=== PATIENT | male | born 1970 | race Caucasian/White ===

== ENCOUNTER 2017-01-01 17:21 | Emergency (ER) | payer BC ==
[2017-01-01] MEDS ORDERED: Lidocaine 1% 20 ML MDV INJECT ONE (17:29)
[2017-01-01] MEDS ORDERED: Bacitracin Oint 1 GM U/D Packet TOP ONE (17:41)
--- NOTE | 2017-01-01 18:02 | EDM.PDOC ---
ED HPI GENERAL MEDICAL PROBLEM - General Chief Complaint: Laceration Stated Complaint: PT CUT LT THUMB Time Seen by Provider: 01/01/17 17:44 - History of Present Illness INITIAL COMMENTS - FREE TEXT/NARRATIVE: HISTORY AND PHYSICAL: History of present illness: 46-year-old male presents to the emergency room today with complaints of a laceration to his left thumb. States he was using a dull paperboard box maker and it slipped out of his hand resulting in a partial skin avulsion of the left thumb. Reports that his tetanus is up-to-date. Denies any numbness or tingling. Patient reports he is currently on antibiotics for a dental abscess. Review of systems: As per history of present illness and below otherwise all systems reviewed and negative. Past medical history: As per history of present illness and as reviewed below otherwise noncontributory. Surgical history: As per history of present illness and as reviewed below otherwise noncontributory. Social history: No reported history of drug or alcohol abuse. Family history: As per history of present illness and as reviewed below otherwise noncontributory. Physical exam: HEENT: Atraumatic, normocephalic, pupils reactive, negative for conjunctival pallor or scleral icterus, mucous membranes moist, throat clear, neck supple, nontender, trachea midline. Lungs: Clear to auscultation, breath sounds equal bilaterally, chest nontender. Heart: S1S2, regular, negative for clicks, rubs, or JVD. Abdomen: Soft, nondistended, nontender. Negative for masses or hepatosplenomegaly. Negative for costovertebral tenderness. Pelvis: Stable nontender. Genitourinary: Deferred. Rectal: Deferred. Extremities: Atraumatic, negative for cords or calf pain. Neurovascular unremarkable. Neuro: Awake, alert, oriented. Cranial nerves II through XII unremarkable. Cerebellum unremarkable. Motor and sensory unremarkable throughout. Exam nonfocal. Patient is currently on antibiotics for a dental abscess. Thorough education was done on monitoring for signs of infection. Patient voices understanding and states he will monitor and follow up if he does notice any signs of infection as discussed. Diagnostics: X-ray Therapeutics: Lidocaine, suture, dressing #8 interrupted stitches with 4-0 nylon and sterile technique to the left thumb. Impression: Laceration Definitive disposition and diagnosis as appropriate pending reevaluation and review of above. Onset: Today Onset Date: 01/01/17 Duration: Minutes: Location: Reports: Upper Extremity, Left Quality: Reports: Burning Severity: Mild Improves with: Reports: None Worsens with: Reports: None left thumb Pain Score (Numeric/FACES): 7 - Related Data Allergies Allergy/AdvReac Type Severity Reaction Status Date / Time No Known Allergies Allergy Verified 01/01/17 17:30 Home Meds: Home Meds Albuterol [Proventil Neb Soln] 2.5 mg IH ASDIRECTED PRN 04/13/15 [History] metFORMIN HCl [Metformin HCl] 1,000 mg PO BID 01/01/17 [History] Past Medical History - Past Health History Medical/Surgical History: Denies Medical/Surgical History HEENT History: Reports: None Cardiovascular History: Reports: CAD, Hypertension Other Cardiovascular History: recent cardiac cath, is in need of CABG/MVR Respiratory History: Reports: Asthma Other Gastrointestinal History: Chrons Disease Genitourinary History: Reports: None Musculoskeletal History: Reports: None Neurological History: Reports: None Psychiatric History: Reports: None Endocrine/Metabolic History: Reports: Diabetes, Type II Immunologic History: Reports: None Oncologic (Cancer) History: Reports: None Dermatologic History: Reports: None - Infectious Disease History Infectious Disease History: Reports: Chicken Pox - Past Surgical History Head Surgeries/Procedures: Reports: None HEENT Surgical History: Reports: None Other Cardiovascular Surgeries/Procedures: open heart surgery 7 wks ago, triple bypass, aortic bvalve replacement, Respiratory Surgical History: Reports: None Male Surgical History: Reports: None Neurological Surgical History: Reports: None Musculoskeletal Surgical History: Reports: None Oncologic Surgical History: Reports: None Social & Family History - Family History Family Medical History: Noncontributory - Tobacco Use Smoking Status *Q: Never Smoker Years of Tobacco use: 30 Packs/Tins Daily: 0.8 Used Tobacco, but Quit: Yes Month Tobacco Last Used: 10/2014 Second Hand Smoke Exposure: No - Alcohol Use Days Per Week of Alcohol Use: 0 - Recreational Drug Use Recreational Drug Use: No ED ROS GENERAL - Review of Systems Review Of Systems: See Below ED EXAM, SKIN/RASH Exam: See Below (See dictation) ED SKIN PROCEDURES - Laceration/Wound Repair Left Thumb Lac/Wound length In cm: 2 Appearance: Clean Distal NVT: Neuro & Vascular Intact, No Tendon Injury Anesthetic Type: Digital Local Anesthesia - Lidocaine (Xylocaine): 1% Plain Local Anesthetic Volume: Other (6) Skin Prep: Chlorhexidine (Hibiciens), Saline, Sterile Drape Exploration/Debridement/Repair: Wound Explored, In a Bloodless Field, No Foreign Material Found Closed with: Sutures Suture Size: 4-0 # of Sutures: 8 Suture Type: Nylon, Simple Course - Vital Signs Last Recorded V/S: Last Vital Signs Temp 36.6 C 01/01/17 17:21 Pulse Resp 18 01/01/17 17:21 BP 165/82 H 01/01/17 17:21 Pulse Ox - Orders/Labs/Meds Orders: Active Orders 24 hr Category Date Time Status Fingers Thumb Lt FA [CR] Stat Exams 01/01/17 17:40 Taken Meds: Medications Discontinued Medications Generic Name Dose Route Start Last Admin Trade Name Deepa PRN Reason Stop Dose Admin Bacitracin 1 dose 01/01/17 17:41 01/01/17 17:56 Bacitracin Oint 1 Gm TOP 01/01/17 17:42 1 dose ONETIME ONE Administration Lidocaine HCl 20 ml 01/01/17 17:29 01/01/17 17:54 Xylocaine 1% INJECT 01/01/17 17:30 20 ml ONETIME ONE Administration Departure - Departure Time of Disposition: 18:43 Disposition: Home, Self-Care 01 Condition: Good Clinical Impression: Laceration - Discharge Information Instructions: Laceration Care, Adult, [id number] Referrals: PCP,None [Primary Care Provider] - Forms: ED Department Discharge Additional Instructions: The following information is given to patients seen in the emergency department who are being discharged to home. This information is to outline your options for follow-up care. We provide all patients seen in our emergency department with a follow-up referral. The need for follow-up, as well as the timing and circumstances, are variable depending upon the specifics of your emergency department visit. If you don't have a primary care physician on staff, we will provide you with a referral. We always advise you to contact your personal physician following an emergency department visit to inform them of the circumstance of the visit and for follow-up with them and/or the need for any referrals to a consulting specialist. The emergency department will also refer you to a specialist when appropriate. This referral assures that you have the opportunity for followup care with a specialist. All of these measure are taken in an effort to provide you with optimal care, which includes your followup. Under all circumstances we always encourage you to contact your private physician who remains a resource for coordinating your care. When calling for followup care, please make the office aware that this follow-up is from your recent emergency room visit. If for any reason you are refused follow-up, please contact the [facility] emergency department at and asked to speak to the emergency department charge nurse. [facility] [address] [place] [id number] 1. Please keep the wound clean and dry. May wear cage splints overtop of laceration to protect it while using the affected finger. Monitor for signs of infection as discussed. Sutures should be removed 10-14 days. 2. Follow-up with your primary care provider in the next 1-2 days. Return to the ED as needed as discussed - My Orders Last 24 Hours: My Active Orders 01/01/17 17:40 Fingers Thumb Lt FA [CR] Stat - Assessment/Plan Last 24 Hours: My Active Orders 01/01/17 17:40 Fingers Thumb Lt FA [CR] Stat
[2017-01-01 18:57] VITALS: BP 136/82
--- NOTE | 2017-01-05 11:14 | CR ---
EXAM DATE: 01/01/17 PATIENT'S AGE: 46 Patient: JAZZ NGUYEN Facility: [place], [place] Site . Site : 1970 Study: XRay Extremity Left THUMB [id number] 6:04:21 PM Ordering Physician: Doctor Chavarria Final Report: INDICATION: LACERATION TECHNIQUE: Three views of the left thumb COMPARISON: None FINDINGS: Bones: No fractures or bone lesions. Joint spaces: Degenerative changes. 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 No radiopaque foreign body. 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 No radiopaque foreign body. No acute bony abnormality Dictated by Shalom Elizalde MD @ 01/01/2017 6:28:28 PM Dictated by: Shalom Elizalde MD @ 01/01/2017 18:28:33 (Electronic Signature) Report Signed by Proxy. MTDDez
== END 2017-01-01 18:55 | disposition home or self-care (01) ==
LOC: MW.ED 17:21
DX: S61.012A Laceration without foreign body of left thumb without damage to nail, initial encounter (principal); I25.10 Atherosclerotic heart disease of native coronary artery without angina pectoris; I10 Essential (primary) hypertension; E11.9 Type 2 diabetes mellitus without complications; W27.8XXA Contact with other nonpowered hand tool, initial encounter
CPT/HCPCS: 12001; 73140-26-FA; 73140-FA; 99283

== ENCOUNTER 2017-02-09 16:11 | Emergency (ER) | payer BC ==
[2017-02-09] MEDS ORDERED: Aspirin 81 MG Tab.Chew PO ONE (16:26)
[2017-02-09] MEDS ORDERED: Sodium Chloride 0.9% 2.5 ML Syringe FLUSH PRN (16:26)
[2017-02-09] MEDS ORDERED: Sodium Chloride 0.9% 10 ML Syringe FLUSH PRN (16:26)
--- NOTE | 2017-02-09 16:30 | EDM.PDOC ---
ED HPI GENERAL MEDICAL PROBLEM - General Chief Complaint: Chest Pain Stated Complaint: CHEST PAIN Time Seen by Provider: 02/09/17 16:17 - History of Present Illness INITIAL COMMENTS - FREE TEXT/NARRATIVE: HISTORY AND PHYSICAL: History of present illness: The patient is a 46-year-old male with an extensive cardiac history including aortic valve replacement 2 for which he currently has a natural valve, open heart surgery, and recent cardiac stent placement at [facility] just about 3 weeks ago who presents with complaints of left-sided chest pain that radiates to his jaw. The patient says he has nitroglycerin but he hasn't had chest pain since his stent and he was doing his normal work today when he suddenly became very diaphoretic. He noticed the discomfort but it was more a matter of the diaphoresis. He wasn't lightheaded or dizzy knee did not pass out and had no abdominal pain or vomiting. He says the discomfort radiates to his jaw only and he tried 3 nitroglycerin every 5 minutes and it did not make the pain better. He presents today with complaints of same. He currently rates his pain as a 7/ 10. Patient is on Plavix as well as one aspirin a day and takes Lasix as well as metoprolol and cannot recall the rest of his medications. He says that with his last admission at [facility] he had normal EKG and labs but still needed a stent. He says that prior to that admission he was at the [facility] 2 prior times and discharge home. He denies any recent upper respiratory tract symptoms coughing shortness of breath abdominal pain vomiting or diarrhea and has had no fevers or chills. He denies any trauma. Review of systems: As per history of present illness and below otherwise all systems reviewed and negative. Past medical history: As per history of present illness and as reviewed below otherwise noncontributory. Surgical history: As per history of present illness and as reviewed below otherwise noncontributory. Social history: No reported history of drug or alcohol abuse. Family history: As per history of present illness and as reviewed below otherwise noncontributory. Physical exam: General: Well-developed overweight man who is nontoxic and speaking clearly in the ED. Vital signs of been reviewed by me. HEENT: Atraumatic, normocephalic, negative for conjunctival pallor or scleral icterus, mucous membranes moist, throat clear, neck supple, nontender, trachea midline. Lungs: Clear to auscultation, breath sounds equal bilaterally, chest nontender. No worker breathing or sensory muscle use Heart: S1S2, regular, negative for clicks, rubs, or JVD. Abdomen: Soft, nondistended, nontender. Negative for masses or hepatosplenomegaly. Hypoactive bowel sounds Pelvis: Stable nontender. Genitourinary: Deferred. Rectal: Deferred. Extremities: Atraumatic, negative for cords or calf pain. Neurovascular unremarkable. No pedal edema or leg asymmetry Neuro: Awake, alert, oriented. Cranial nerves II through XII unremarkable. Cerebellum unremarkable. Motor and sensory unremarkable throughout. Exam nonfocal. Skin: No diaphoresis normal turgor no evidence of any overt rashes or lesions Diagnostics: EKG chest x-ray CBC CMP INR troponin Therapeutics: IV O2 monitor TKO IV fluids nitroglycerin sublingual nitroglycerin drip if indicated 3 baby aspirin as patient took one this morning Lovenox After my initial interview the patient is a 30 stated to me that he will not go to [facility] or he had a bad experience there with his first valve replacement and he wants to go back to [facility] if he is going to be transferred. 1700: After 3 sublingual nitros the patient says that the pain is not better. We will begin nitro drip. We will also perform a second EKG. Flight team is then placed on standby after my initial evaluation with the patient 1710: Case was discussed with the education consultant at [facility], Dr. Blackman, who wants heparin per protocol to be started and a nitro drip. He accepts the patient for direct transfer to the ICU. He is aware of all testing results. Patient is also aware of this transfer and the flight route. I will give him some of the pain as well as heparin bolus and heparin drip. Critical care time excluding procedures:31min Impression: Unstable angina with recent PTCA with stent Definitive disposition and diagnosis as appropriate pending reevaluation and review of above. 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 Left Chest/Shoulder/Jaw Pain Score (Numeric/FACES): 7 - Related Data Allergies Allergy/AdvReac Type Severity Reaction Status Date / Time No Known Allergies Allergy Verified 02/09/17 16:19 Home Meds: Home Meds Albuterol [Proventil Neb Soln] 2.5 mg IH ASDIRECTED PRN 04/13/15 [History] metFORMIN HCl [Metformin HCl] 1,000 mg PO BID 01/01/17 [History] Past Medical History - Past Health History Medical/Surgical History: Denies Medical/Surgical History HEENT History: Reports: None Cardiovascular History: Reports: CAD, Hypertension Other Cardiovascular History: recent cardiac cath, is in need of CABG/MVR Respiratory History: Reports: Asthma Other Gastrointestinal History: Chrons Disease Genitourinary History: Reports: None Musculoskeletal History: Reports: None Neurological History: Reports: None Psychiatric History: Reports: None Endocrine/Metabolic History: Reports: Diabetes, Type II Immunologic History: Reports: None Oncologic (Cancer) History: Reports: None Dermatologic History: Reports: None - Infectious Disease History Infectious Disease History: Reports: Chicken Pox - Past Surgical History Head Surgeries/Procedures: Reports: None HEENT Surgical History: Reports: None Other Cardiovascular Surgeries/Procedures: open heart surgery 7 wks ago, triple bypass, aortic bvalve replacement, Respiratory Surgical History: Reports: None Male Surgical History: Reports: None Neurological Surgical History: Reports: None Musculoskeletal Surgical History: Reports: None Oncologic Surgical History: Reports: None Social & Family History - Family History Family Medical History: Noncontributory - Tobacco Use Smoking Status *Q: Never Smoker Years of Tobacco use: 30 Packs/Tins Daily: 0.8 Used Tobacco, but Quit: Yes Month Tobacco Last Used: 10/2014 Second Hand Smoke Exposure: No - Alcohol Use Days Per Week of Alcohol Use: 0 - Recreational Drug Use Recreational Drug Use: No ED ROS GENERAL - Review of Systems Review Of Systems: ROS reveals no pertinent complaints other than HPI. ED EXAM, GENERAL - Physical Exam Exam: See Below (See dictation) Course - Vital Signs Last Recorded V/S: Last Vital Signs Temp 36.3 C 02/09/17 16:19 Pulse 64 02/09/17 16:33 Resp 18 02/09/17 16:33 BP 107/52 L 02/09/17 16:58 Pulse Ox 94 L 02/09/17 16:33 - Orders/Labs/Meds Orders: Active Orders 24 hr Category Date Time Status Cardiac Monitoring [RC] . DIRECTED Care 02/09/17 16:25 Active EKG 12 Lead [EKG Documentation Completion] [RC] STAT Care 02/09/17 16:27 Active EKG Documentation Completion [RC] STAT Care 02/09/17 16:25 Active Oxygen Therapy, ED [RC] ASDIRECTED Care 02/09/17 16:25 Active Pulse Oximetry [RC] ASDIRECTED Care 02/09/17 16:25 Active Chest 1V Frontal [CR] Stat Exams 02/09/17 16:26 Taken Heparin Sod,Pork In 0.45% Nacl [Heparin-1/2Ns 25,000 Med 02/09/17 17:15 Ordered Units/500] 25,000 unit in 500 ml IV TITRATE Nitroglycerin/D5W [Nitroglycerin 25 MG/D5W 250 ML] Med 02/09/17 17:15 Active 25 mg in 250 ml IV TITRATE Sodium Chloride 0.9% [Normal Saline] 1,000 ml Med 02/09/17 16:45 Active IV ASDIRECTED Sodium Chloride 0.9% [Saline Flush] Med 02/09/17 16:26 Active 10 ml FLUSH ASDIRECTED PRN Sodium Chloride 0.9% [Saline Flush] Med 02/09/17 16:26 Active 2.5 ml FLUSH ASDIRECTED PRN Saline Lock Insert [OM.PC] Stat Oth 02/09/17 16:25 Ordered Medication Orders Sodium Chloride (Normal Saline) 1,000 mls @ 50 mls/hr IV ASDIRECTED ROVERTO Last Admin: 02/09/17 16:47 Dose: 50 mls/hr Nitroglycerin/Dextrose (Nitroglycerin 25 Mg/D5w 250 Ml) 25 mg in 250 mls @ 3 mls/hr IV TITRATE ROVERTO PRN Reason: 5 MCG/MIN Last Admin: 02/09/17 17:20 Dose: 5 mcg/min, 3 mls/hr Heparin Sod,Pork In 0.45% Nacl (Heparin-1/2ns 25,000 Units/500) 25,000 unit in 500 mls @ 0 mls/hr IV TITRATE ROVERTO; 1,000 UNITS/KG/HR PRN Reason: Protocol Sodium Chloride (Saline Flush) 10 ml FLUSH ASDIRECTED PRN PRN Reason: Keep Vein Open Last Admin: 02/09/17 16:47 Dose: 10 ml Sodium Chloride (Saline Flush) 2.5 ml FLUSH ASDIRECTED PRN PRN Reason: Keep Vein Open Last Admin: 02/09/17 16:47 Dose: 2.5 ml Labs: Laboratory Tests 02/09/17 02/09/17 02/09/17 Range/Units 16:26 16:26 16:26 WBC 7.41 (4.0-11.0) K/uL RBC 4.98 (4.50-5.90) M/uL Hgb 13.4 (13.0-17.0) g/dL Hct 39.4 (38.0-50.0) % MCV 79.1 L (80.0-98.0) fL MCH 26.9 L (27.0-32.0) pg MCHC 34.0 (31.0-37.0) g/dL RDW Std Deviation 57.1 (28.0-62.0) fl RDW Coeff of Raine 20 H (11.0-15.0) % Plt Count 257 (150-400) K/uL MPV 9.90 (7.40-12.00) fL Neut % (Auto) 58.1 (48.0-80.0) % Lymph % (Auto) 32.7 (16.0-40.0) % Converse % (Auto) 7.6 (0.0-15.0) % Eos % (Auto) 1.3 (0.0-7.0) % Baso % (Auto) 0.3 (0.0-1.5) % Neut # (Auto) 4.3 (1.4-5.7) K/uL Lymph # (Auto) 2.4 (0.6-2.4) K/uL Converse # (Auto) 0.6 (0.0-0.8) K/uL Eos # (Auto) 0.1 (0.0-0.7) K/uL Baso # (Auto) 0.0 (0.0-0.1) K/uL Nucleated RBC % 0.0 /100WBC Nucleated RBCs # 0 K/uL INR 0.96 (0.86-1.11) Sodium 139 (136-146) mmol/L Potassium 3.6 (3.5-5.1) mmol/L Chloride 107 (98-110) mmol/L Carbon Dioxide 21 (21-31) mmol/L BUN 19 (6.0-23.0) mg/dL Creatinine 1.1 (0.6-1.5) mg/dL Est Cr Clr Drug Dosing 97.56 mL/min Estimated GFR (MDRD) > 60.0 ml/min Glucose 110 (60-110) mg/dL Calcium 9.2 (8.8-10.8) mg/dL Total Bilirubin 0.5 (0.1-1.5) mg/dL AST 19 (5-40) IU/L ALT 16 (8-54) IU/L Alkaline Phosphatase 96 (40-150) Troponin I (0.0-0.29) NG/ML Total Protein 7.3 (6.0-8.0) g/dL Albumin 3.9 (3.5-5.0) g/dL Globulin 3.4 (2.0-3.5) g/dL Albumin/Globulin Ratio 1.2 L (1.3-2.8) 02/09/17 Range/Units 16:26 WBC (4.0-11.0) K/uL RBC (4.50-5.90) M/uL Hgb (13.0-17.0) g/dL Hct (38.0-50.0) % MCV (80.0-98.0) fL MCH (27.0-32.0) pg MCHC (31.0-37.0) g/dL RDW Std Deviation (28.0-62.0) fl RDW Coeff of Raine (11.0-15.0) % Plt Count (150-400) K/uL MPV (7.40-12.00) fL Neut % (Auto) (48.0-80.0) % Lymph % (Auto) (16.0-40.0) % Converse % (Auto) (0.0-15.0) % Eos % (Auto) (0.0-7.0) % Baso % (Auto) (0.0-1.5) % Neut # (Auto) (1.4-5.7) K/uL Lymph # (Auto) (0.6-2.4) K/uL Converse # (Auto) (0.0-0.8) K/uL Eos # (Auto) (0.0-0.7) K/uL Baso # (Auto) (0.0-0.1) K/uL Nucleated RBC % /100WBC Nucleated RBCs # K/uL INR (0.86-1.11) Sodium (136-146) mmol/L Potassium (3.5-5.1) mmol/L Chloride (98-110) mmol/L Carbon Dioxide (21-31) mmol/L BUN (6.0-23.0) mg/dL Creatinine (0.6-1.5) mg/dL Est Cr Clr Drug Dosing mL/min Estimated GFR (MDRD) ml/min Glucose (60-110) mg/dL Calcium (8.8-10.8) mg/dL Total Bilirubin (0.1-1.5) mg/dL AST (5-40) IU/L ALT (8-54) IU/L Alkaline Phosphatase (40-150) Troponin I < 0.10 (0.0-0.29) NG/ML Total Protein (6.0-8.0) g/dL Albumin (3.5-5.0) g/dL Globulin (2.0-3.5) g/dL Albumin/Globulin Ratio (1.3-2.8) Meds: Medications Generic Name Dose Route Start Last Admin Trade Name Freq PRN Reason Stop Dose Admin Sodium Chloride 1,000 mls @ 50 mls/hr 02/09/17 16:45 02/09/17 16:47 Normal Saline IV 50 mls/hr ASDIRECTED ROVERTO Administration Nitroglycerin/Dextrose 25 mg in 250 mls @ 3 mls/hr 02/09/17 17:15 02/09/17 17 :20 Nitroglycerin 25 Mg/D5w 250 Ml IV 5 mcg/min TITRATE ROVERTO 3 mls/hr 5 MCG/MIN Administration Heparin Sod,Pork In 0.45% Nacl 25,000 unit in 500 mls @ 0 mls/hr 02/09/17 17: 15 Heparin-1/2ns 25,000 Units/500 IV TITRATE ROVERTO Protocol 1,000 UNITS/KG/HR Sodium Chloride 10 ml 02/09/17 16:26 02/09/17 16:47 Saline Flush FLUSH 10 ml ASDIRECTED PRN Administration Keep Vein Open Sodium Chloride 2.5 ml 02/09/17 16:26 02/09/17 16:47 Saline Flush FLUSH 2.5 ml ASDIRECTED PRN Administration Keep Vein Open Discontinued Medications Generic Name Dose Route Start Last Admin Trade Name Freq PRN Reason Stop Dose Admin Aspirin 243 mg 02/09/17 16:26 02/09/17 16:35 Aspirin PO 02/09/17 16:27 243 mg ONETIME ONE Administration Heparin Sodium (Porcine) 5,000 units 02/09/17 17:20 Heparin Sodium IVPUSH 02/09/17 17:21 ONETIME ONE Nitroglycerin 0.4 mg 02/09/17 16:30 02/09/17 16:58 Nitrostat SL 02/09/17 16:41 0.4 mg Q5M ROVERTO Administration Departure - Departure Time of Disposition: 17:24 Disposition: DC/Tfer to Acute Hospital 02 Condition: Good Clinical Impression: Unstable angina - Discharge Information Forms: ED Department Discharge - My Orders Last 24 Hours: My Active Orders 02/09/17 16:25 Cardiac Monitoring [RC] . DIRECTED EKG Documentation Completion [RC] STAT Oxygen Therapy, ED [RC] ASDIRECTED Pulse Oximetry [RC] ASDIRECTED Saline Lock Insert [OM.PC] Stat 02/09/17 16:26 Chest 1V Frontal [CR] Stat Sodium Chloride 0.9% [Saline Flush] 10 ml FLUSH ASDIRECTED PRN Sodium Chloride 0.9% [Saline Flush] 2.5 ml FLUSH ASDIRECTED PRN 02/09/17 16:27 EKG 12 Lead [EKG Documentation Completion] [RC] STAT 02/09/17 16:45 Sodium Chloride 0.9% [Normal Saline] 1,000 ml IV ASDIRECTED 02/09/17 17:15 Heparin Sod,Pork In 0.45% Nacl [Heparin-1/2Ns 25,000 Units/500] 25,000 unit in 500 ml IV TITRATE Nitroglycerin/D5W [Nitroglycerin 25 MG/D5W 250 ML] 25 mg in 250 ml IV TITRATE - Assessment/Plan Last 24 Hours: My Active Orders 02/09/17 16:25 Cardiac Monitoring [RC] . DIRECTED EKG Documentation Completion [RC] STAT Oxygen Therapy, ED [RC] ASDIRECTED Pulse Oximetry [RC] ASDIRECTED Saline Lock Insert [OM.PC] Stat 02/09/17 16:26 Chest 1V Frontal [CR] Stat Sodium Chloride 0.9% [Saline Flush] 10 ml FLUSH ASDIRECTED PRN Sodium Chloride 0.9% [Saline Flush] 2.5 ml FLUSH ASDIRECTED PRN 02/09/17 16:27 EKG 12 Lead [EKG Documentation Completion] [RC] STAT 02/09/17 16:45 Sodium Chloride 0.9% [Normal Saline] 1,000 ml IV ASDIRECTED 02/09/17 17:15 Heparin Sod,Pork In 0.45% Nacl [Heparin-1/2Ns 25,000 Units/500] 25,000 unit in 500 ml IV TITRATE Nitroglycerin/D5W [Nitroglycerin 25 MG/D5W 250 ML] 25 mg in 250 ml IV TITRATE
[2017-02-09] MEDS ORDERED: Sodium Chloride 0.9% 1,000 ML IV SCH (16:45)
[2017-02-09] MEDS: Nitroglycerin 0.4 MG Tab.SL SL SCH ×3 (16:46→16:58)
[2017-02-09 16:59] VITALS: BP 107/52
[2017-02-09 17:01] LABS: CHLORIDE,CL 107 mmol/L (98-110); SODIUM,NA 139 mmol/L (136-146)
[2017-02-09] MEDS ORDERED: Heparin Sod,Pork In 0.45% Nacl 25,000 UNIT/500 ML IV.SOLN IV SCH ×2 (17:15→17:45)
[2017-02-09] MEDS ORDERED: Nitroglycerin/D5W 25 MG/250 ML BOTTLE IV SCH (17:15)
[2017-02-09] MEDS ORDERED: Heparin Sodium 5,000 Units/ML Vial IVPUSH ONE (17:20)
[2017-02-09] MEDS ORDERED: fentaNYL 100 MCG/2 ML SDV IVPUSH PRN (17:24)
--- NOTE | 2017-02-10 10:22 | CR ---
EXAM DATE: 02/09/17 PATIENT'S AGE: 46 Patient: JAZZ NGUYEN Facility: [place], [place] Site Site : 1970 Study: XRay Chest [id number]/[id number]/2017 5:03:02 PM Ordering Physician: BINA Final Report: INDICATION: CHEST PAIN TECHNIQUE: Chest 1 view COMPARISON: April 13, 2015 FINDINGS: Cardiovascular and mediastinum: Stable cardiac silhouette. Stable sternotomy changes.. Mediastinum is within normal limits. Lungs and pleural space: No focal consolidation. No sign of pleural effusion. No pneumothorax. Bones and soft tissues: No significant findings. IMPRESSION: No acute cardiopulmonary disease. Dictated by Shalom Elizalde MD @ 02/09/2017 5:30:45 PM Dictated by: Shalom Elizalde MD @ 02/09/2017 17:30:52 (Electronic Signature) Report Signed by Proxy. [facility]
== END 2017-02-09 18:17 ==
LOC: MW.ED 16:11
DX: I20.0 Unstable angina (principal); I10 Essential (primary) hypertension; J45.909 Unspecified asthma, uncomplicated; E11.9 Type 2 diabetes mellitus without complications; Z95.1 Presence of aortocoronary bypass graft; Z95.2 Presence of prosthetic heart valve; Z87.891 Personal history of nicotine dependence; Z95.5 Presence of coronary angioplasty implant and graft; Z79.84 Long term (current) use of oral hypoglycemic drugs
CPT/HCPCS: 36415; 71010; 80053; 84484; 85025; 85610; 93005; 96361; 96365; 96368; 96375; 96376; 99285; A9270; J1644; J3010; J7040; 99291

== ENCOUNTER 2017-04-20 16:05 | Emergency (ER) | payer BC ==
[2017-04-20] MEDS ORDERED: Aspirin 81 MG Tab.Chew PO ONE (16:13)
[2017-04-20] MEDS ORDERED: Nitroglycerin 2% Oint 1 GM UD Packet TOP ONE (16:25)
[2017-04-20] MEDS ORDERED: Aspirin 81 MG Tab.Chew ONE (16:26)
[2017-04-20] MEDS ORDERED: Nitroglycerin 2% Oint 1 GM UD Packet ONE (16:26)
--- NOTE | 2017-04-20 17:41 | EDM.PDOC ---
ED HPI GENERAL MEDICAL PROBLEM - General Chief Complaint: Chest Pain Stated Complaint: CHEST PAIN Time Seen by Provider: 04/20/17 16:14 - History of Present Illness INITIAL COMMENTS - FREE TEXT/NARRATIVE: HISTORY AND PHYSICAL: History of present illness: Patient's 46-year-old white male with history of extensive coronary artery disease including cardiothoracic surgery 3 including as recently as approximately 8 months prior at [place] where he had a Ross procedure he presents today with chest pain that has been relatively constant since midnight he states he's been "eating nitroglycerin like candy" he equivocates regarding shortness of breath and diaphoresis he denies palpitations nausea or vomiting Review of systems: As per history of present illness and below otherwise all systems reviewed and negative. Past medical history: As per history of present illness and as reviewed below otherwise noncontributory. Surgical history: As per history of present illness and as reviewed below otherwise noncontributory. Social history: No reported history of drug or alcohol abuse. Family history: As per history of present illness and as reviewed below otherwise noncontributory. Physical exam: HEENT: Atraumatic, normocephalic, pupils reactive, negative for conjunctival pallor or scleral icterus, mucous membranes moist, throat clear, neck supple, nontender, trachea midline. Lungs: Clear to auscultation, breath sounds equal bilaterally, chest nontender. Heart: S1S2, regular, negative for clicks, rubs, or JVD. Abdomen: Soft, nondistended, nontender. Negative for masses or hepatosplenomegaly. Negative for costovertebral tenderness. Pelvis: Stable nontender. Genitourinary: Deferred. Rectal: Deferred. Extremities: Atraumatic, negative for cords or calf pain. Neurovascular unremarkable. Neuro: Awake, alert, oriented. Cranial nerves II through XII unremarkable. Cerebellum unremarkable. Motor and sensory unremarkable throughout. Exam nonfocal. Diagnostics: CBC CMP troponin PT/INR chest x-ray EKG Therapeutics: IV O2 monitor Nitropaste 1 inch aspirin 324 mg Impression: #1 unstable angina Definitive disposition and diagnosis as appropriate pending reevaluation and review of above. Chest Pain Score (Numeric/FACES): 7 - Related Data Allergies Allergy/AdvReac Type Severity Reaction Status Date / Time No Known Allergies Allergy Verified 04/20/17 16:16 Home Meds: Home Meds Albuterol [Proventil Neb Soln] 2.5 mg IH ASDIRECTED PRN 04/13/15 [History] metFORMIN HCl [Metformin HCl] 1,000 mg PO BID 01/01/17 [History] Past Medical History - Past Health History Medical/Surgical History: Denies Medical/Surgical History HEENT History: Reports: None Cardiovascular History: Reports: CAD, Hypertension Other Cardiovascular History: recent cardiac cath, is in need of CABG/MVR Respiratory History: Reports: Asthma Gastrointestinal History: Reports: Other (See Below) Other Gastrointestinal History: Chrons Disease Genitourinary History: Reports: None Musculoskeletal History: Reports: None Neurological History: Reports: None Psychiatric History: Reports: None Endocrine/Metabolic History: Reports: Diabetes, Type II Immunologic History: Reports: None Oncologic (Cancer) History: Reports: None Dermatologic History: Reports: None - Infectious Disease History Infectious Disease History: Reports: Chicken Pox - Past Surgical History Head Surgeries/Procedures: Reports: None HEENT Surgical History: Reports: None Other Cardiovascular Surgeries/Procedures: open heart surgery 7 wks ago, triple bypass, aortic bvalve replacement, Respiratory Surgical History: Reports: None Male Surgical History: Reports: None Neurological Surgical History: Reports: None Musculoskeletal Surgical History: Reports: None Oncologic Surgical History: Reports: None Social & Family History - Family History Family Medical History: Noncontributory - Tobacco Use Smoking Status *Q: Never Smoker Years of Tobacco use: 30 Packs/Tins Daily: 0.8 Used Tobacco, but Quit: Yes Month Tobacco Last Used: 10/2014 Second Hand Smoke Exposure: No - Caffeine Use Caffeine Use: Reports: Coffee - Alcohol Use Days Per Week of Alcohol Use: 0 - Recreational Drug Use Recreational Drug Use: No ED ROS GENERAL - Review of Systems Review Of Systems: ROS reveals no pertinent complaints other than HPI. ED EXAM, GENERAL - Physical Exam Exam: See Below (See dictation) Course - Vital Signs Last Recorded V/S: Last Vital Signs Temp 36.7 C 04/20/17 16:17 Pulse 86 04/20/17 16:17 Resp 20 04/20/17 16:17 BP 150/90 H 04/20/17 16:17 Pulse Ox 97 04/20/17 16:17 - Orders/Labs/Meds Orders: Active Orders 24 hr Category Date Time Status EKG Documentation Completion [RC] STAT Care 04/20/17 16:13 Active Chest 1V Frontal [CR] Stat Exams 04/20/17 16:13 Ordered CBC WITH AUTO DIFF [HEME] Stat Lab 04/20/17 16:13 Ordered COMPREHENSIVE METABOLIC PN,CMP [CHEM] Stat Lab 04/20/17 16:13 Ordered TROPONIN I [CHEM] Stat Lab 04/20/17 16:13 Ordered Aspirin Med 04/20/17 16:13 Once 324 mg PO ONETIME ONE Nitroglycerin [Nitro-Bid 2%] Med 04/20/17 16:25 Once 1 gm TOP ONETIME ONE Departure - Departure Time of Disposition: 16:28 Disposition: DC/Tfer to Acute Hospital 02 Condition: Serious Clinical Impression: Acute coronary syndrome - Discharge Information Referrals: PCP,None [Primary Care Provider] - Forms: ED Department Discharge - My Orders Last 24 Hours: My Active Orders 04/20/17 16:25 Nitroglycerin [Nitro-Bid 2%] 1 gm TOP ONETIME ONE - Assessment/Plan Last 24 Hours: My Active Orders 04/20/17 16:25 Nitroglycerin [Nitro-Bid 2%] 1 gm TOP ONETIME ONE
[2017-04-20 18:37] VITALS: BP 147/76
[2017-04-20 18:49] LABS: CHLORIDE,CL 107 mmol/L (98-110); SODIUM,NA 138 mmol/L (136-146)
--- NOTE | 2017-04-21 08:57 | CR ---
EXAM DATE: 04/20/17 PATIENT'S AGE: 46 Patient: JAZZ NGUYEN Facility: [place], [place] Site . Site : 1970 Study: XRay Chest [id number]/19/2017 4:53:57 PM Ordering Physician: Preeti Canela Final Report: HISTORY: Chest pain. FINDINGS: AP portable chest radiograph compared with 09 February 2017. There are median sternotomy wires present. Cardiac silhouette is at the upper limits of normal without change. Pulmonary vasculature is free of cephalization. No lobar consolidation or effusion is seen. IMPRESSION: Prior median sternotomy with borderline cardiomegaly without evidence of CHF. Dictated by Jennifer Hahn MD @ 04/20/2017 5:06:23 PM Dictated by: Jennifer Hahn MD @ 04/20/2017 17:06:33 (Electronic Signature) Report Signed by Proxy. RADHA
== END 2017-04-20 17:00 ==
LOC: MW.ED 16:05
DX: I24.9 Acute ischemic heart disease, unspecified (principal); I25.10 Atherosclerotic heart disease of native coronary artery without angina pectoris; E11.9 Type 2 diabetes mellitus without complications; I10 Essential (primary) hypertension; Z79.84 Long term (current) use of oral hypoglycemic drugs; Z48.812 Encounter for surgical aftercare following surgery on the circulatory system
CPT/HCPCS: 36415; 71010; 71010-26; 80053; 84484; 85025; 85610; 93005; 99282; 99285-25

== ENCOUNTER 2019-01-13 15:30 | Observation (INO) | payer BC, OTHER, MEDICAID ==
[2019-01-13] MEDS ORDERED: Aspirin 81 MG Tab.Chew PO ONE (15:35)
[2019-01-13] MEDS ORDERED: Sodium Chloride 0.9% 10 ML Syringe FLUSH PRN (15:35)
[2019-01-13] MEDS ORDERED: Sodium Chloride 0.9% 2.5 ML Syringe FLUSH PRN (15:35)
--- NOTE | 2019-01-13 15:36 | EDM.PDOC ---
ED HPI GENERAL MEDICAL PROBLEM - General Stated Complaint: CHEST PAIN Time Seen by Provider: 01/13/19 15:34 Source of Information: Reports: Patient History Limitations: Reports: No Limitations - History of Present Illness INITIAL COMMENTS - FREE TEXT/NARRATIVE: History of present illness: []Patient has been having increased amount of rapid A. fib and chest pressure pain in the last 2 weeks that makes him feel extremely tired when he slows down. He started having 7/10 chest pain 1 hour ago that was not alleviated by 3 nitroglycerin tablets. She states the pain radiates through to his back and he' s been feeling mildly short of breath. No recent illnesses. He is a diabetic and has had 3 CABGs as well as a Ross procedure that transferred his pulmonary valve to replace his aortic valve in [place]. All his cardiac surgeries have been done within the past 3 years.. He does not take blood thinners but he is currently on a daily baby aspirin. Review of systems: As per history of present illness and below otherwise all systems reviewed and negative. Past medical history: As per history of present illness and as reviewed below otherwise noncontributory. Surgical history: As per history of present illness and as reviewed below otherwise noncontributory. Social history: No reported history of drug or alcohol abuse. Family history: As per history of present illness and as reviewed below otherwise noncontributory. Physical exam: General: Well developed, well nourished in NAD HEENT: Atraumatic, normocephalic, pupils reactive, negative for conjunctival pallor or scleral icterus, mucous membranes moist, throat clear, neck supple, nontender, trachea midline. Lungs: Clear to auscultation, breath sounds equal bilaterally, chest nontender. Heart: S1S2, regular, negative for clicks, rubs, or JVD. Abdomen: NABS, Soft, nondistended, nontender. Negative for masses or hepatosplenomegaly. Negative for costovertebral tenderness. Pelvis: Stable nontender. Genitourinary: Deferred. Rectal: Deferred. Extremities: Atraumatic, negative for cords or calf pain. Neurovascular unremarkable. Neuro: Awake, alert, oriented. Cranial nerves II through XII unremarkable. Cerebellum unremarkable. Motor and sensory unremarkable throughout. Exam nonfocal. Skin:warm and dry Diagnostics: CBC, chemistry, EKG, chest x-ray, troponin Therapeutics: IV, monitoring, aspirin, Zofran, no nitroglycerin ED Course: Stable Impression: Chest pain Prescriptions: None Plan: Admit to [facility] Definitive disposition and diagnosis as appropriate pending reevaluation and review of above. Chest Pain Pain Score (Numeric/FACES): 7 Middle Back Pain Score (Numeric/FACES): 5 - Related Data Allergies Allergy/AdvReac Type Severity Reaction Status Date / Time No Known Allergies Allergy Verified 01/13/19 18:30 Home Meds: Home Meds metFORMIN HCl [Metformin HCl] 1,000 mg PO BID 01/01/17 [History] Empagliflozin [Jardiance] 10 mg PO ASDIRECTED MDD 10mg 01/13/19 [History] Lisinopril [Zestril] 40 mg PO DAILY MDD 40 mg 01/13/19 [History] Metoprolol Tartrate 50 mg PO DAILY MDD 100mg 01/13/19 [History] buPROPion [Wellbutrin] 300 mg PO BEDTIME MDD 300 01/13/19 [History] Acetaminophen [Tylenol] 650 mg PO Q4H PRN tablet 01/14/19 [Rx] Nicotine [Habitrol] 14 mg TRDERM DAILY 10 Days #10 patch 01/14/19 [Rx] Nitroglycerin [Nitrostat] 0.4 mg SL Q5M PRN tab.sl 01/14/19 [Rx] Past Medical History - Past Health History Medical/Surgical History: Denies Medical/Surgical History HEENT History: Reports: None Cardiovascular History: Reports: CAD, Hypertension Other Cardiovascular History: recent cardiac cath, is in need of CABG/MVR Respiratory History: Reports: Asthma Gastrointestinal History: Reports: Other (See Below) Other Gastrointestinal History: Chrons Disease Genitourinary History: Reports: None Musculoskeletal History: Reports: None Neurological History: Reports: None Psychiatric History: Reports: None Endocrine/Metabolic History: Reports: Diabetes, Type II Immunologic History: Reports: None Oncologic (Cancer) History: Reports: None Dermatologic History: Reports: None - Infectious Disease History Infectious Disease History: Reports: Chicken Pox - Past Surgical History Head Surgeries/Procedures: Reports: None HEENT Surgical History: Reports: None Other Cardiovascular Surgeries/Procedures: open heart surgery 7 wks ago, triple bypass, aortic bvalve replacement, Respiratory Surgical History: Reports: None Male Surgical History: Reports: None Neurological Surgical History: Reports: None Musculoskeletal Surgical History: Reports: None Oncologic Surgical History: Reports: None Social & Family History - Family History Family Medical History: Noncontributory - Caffeine Use Caffeine Use: Reports: Coffee ED ROS GENERAL - Review of Systems Review Of Systems: See Below ED EXAM, GENERAL - Physical Exam Exam: See Below Course - Vital Signs Last Recorded V/S: Last Vital Signs Temp 96.8 F 01/14/19 07:32 Pulse 52 L 01/14/19 09:20 Resp 17 01/14/19 07:32 BP 105/49 L 01/14/19 09:20 Pulse Ox 96 01/14/19 07:32 - Orders/Labs/Meds Orders: Active Orders 24 hr Category Date Time Status Patient Status [ADT] Stat ADT 01/13/19 17:48 Active Cardiac Monitoring [RC] . DIRECTED Care 01/13/19 15:34 Active EKG Documentation Completion [RC] STAT Care 01/13/19 15:34 Active Oxygen Therapy, ED [RC] ASDIRECTED Care 01/13/19 15:34 Active Saline Lock Insert [OM.PC] Stat Oth 01/13/19 15:34 Ordered Labs: Laboratory Tests 01/13/19 01/13/19 01/13/19 Range/Units 15:45 15:45 15:45 WBC 8.33 (4.0-11.0) K/uL RBC 5.08 (4.50-5.90) M/uL Hgb 15.3 (13.0-17.0) g/dL Hct 45.7 (38.0-50.0) % MCV 90.0 (80.0-98.0) fL MCH 30.1 (27.0-32.0) pg MCHC 33.5 (31.0-37.0) g/dL RDW Std Deviation 48.9 (28.0-62.0) fl RDW Coeff of Raine 15 (11.0-15.0) % Plt Count 191 (150-400) K/uL MPV 11.00 (7.40-12.00) fL Neut % (Auto) 60.0 (48.0-80.0) % Lymph % (Auto) 30.0 (16.0-40.0) % Forest % (Auto) 8.2 (0.0-15.0) % Eos % (Auto) 1.6 (0.0-7.0) % Baso % (Auto) 0.2 (0.0-1.5) % Neut # (Auto) 5.0 (1.4-5.7) K/uL Lymph # (Auto) 2.5 H (0.6-2.4) K/uL Forest # (Auto) 0.7 (0.0-0.8) K/uL Eos # (Auto) 0.1 (0.0-0.7) K/uL Baso # (Auto) 0.0 (0.0-0.1) K/uL Nucleated RBC % 0.0 /100WBC Nucleated RBCs # 0 K/uL Sodium 138 (136-148) mmol/L Potassium 4.5 (3.5-5.1) mmol/L Chloride 104 (98-107) mmol/L Carbon Dioxide 23.2 (21.0-32.0) mmol/L BUN 37 H (7.0-18.0) mg/dL Creatinine 1.5 H (0.8-1.3) mg/dL Est Cr Clr Drug Dosing 70.02 mL/min Estimated GFR (MDRD) 49.9 ml/min Glucose 146 H (74-106) mg/dL Calcium 9.5 (8.5-10.1) mg/dL Total Bilirubin 0.3 (0.2-1.0) mg/dL AST 29 (15-37) IU/L ALT 26 (14-63) IU/L Alkaline Phosphatase 99 (46-116) U/L Troponin I < 0.050 (0.000-0.056) ng/mL B-Natriuretic Peptide 121 H (<100) PG/ML Total Protein 7.0 (6.4-8.2) g/dL Albumin 3.5 (3.4-5.0) g/dL Globulin 3.5 (2.6-4.0) g/dL Albumin/Globulin Ratio 1.0 (0.9-1.6) Meds: Medications Discontinued Medications Generic Name Dose Route Start Last Admin Trade Name Freq PRN Reason Stop Dose Admin Acetaminophen 650 mg 01/13/19 18:23 Tylenol PO Q4H PRN Pain/Fever Aspirin 324 mg 01/13/19 15:35 01/13/19 15:55 Aspirin PO 01/13/19 15:36 324 mg ONETIME ONE Administration Bupropion HCl 300 mg 01/13/19 21:00 Wellbutrin Xl PO BEDTIME [facility] Enoxaparin Sodium 40 mg 01/13/19 18:30 01/13/19 18:48 Lovenox SUBCUT 40 mg Q24H [facility] Administration Sodium Chloride 1,000 mls @ 125 mls/hr 01/13/19 18:30 01/14/19 03:51 Normal Saline IV 125 mls/hr ASDIRECTED [facility] Administration Insulin Aspart 0 unit 01/14/19 07:30 01/14/19 06:45 Novolog SUBCUT Not Given TIDAC [facility] Protocol Lisinopril 40 mg 01/14/19 09:00 01/14/19 09:19 Prinivil PO Not Given DAILY [facility] Metoprolol Tartrate 50 mg 01/14/19 09:00 01/14/19 09:20 Lopressor PO Not Given DAILY [facility] Morphine Sulfate 2 mg 01/13/19 16:11 01/13/19 16:15 Morphine IVPUSH 01/13/19 16:12 2 mg ONETIME ONE Administration Morphine Sulfate 2 mg 01/13/19 16:31 01/13/19 16:35 Morphine IVPUSH 01/13/19 16:32 2 mg ONETIME ONE Administration Morphine Sulfate 1 mg 01/13/19 17:54 01/13/19 17:58 Morphine IVPUSH 01/13/19 17:55 1 mg ONETIME ONE Administration Morphine Sulfate 2 mg 01/13/19 18:18 01/14/19 07:46 Morphine IVPUSH 2 mg Q2H PRN Administration Chest Pain Nicotine 14 mg 01/14/19 09:00 01/14/19 09:53 Habitrol TRDERM Not Given DAILY [facility] Nitroglycerin 0.4 mg 01/13/19 15:35 01/13/19 16:09 Nitrostat SL 0.4 mg Q5M PRN Administration Chest Pain Nitroglycerin 0.4 mg 01/13/19 18:18 Nitrostat SL Q5M PRN Chest Pain Ondansetron HCl 4 mg 01/13/19 16:11 01/13/19 16:15 Zofran IVPUSH 01/13/19 16:12 4 mg ONETIME ONE Administration Ondansetron HCl 4 mg 01/13/19 18:23 Zofran IVPUSH Q4H PRN Nausea/Vomiting Sodium Chloride 10 ml 01/13/19 15:35 01/13/19 15:58 Saline Flush FLUSH 10 ml ASDIRECTED PRN Administration Keep Vein Open Sodium Chloride 2.5 ml 01/13/19 15:35 01/13/19 15:58 Saline Flush FLUSH 2.5 ml ASDIRECTED PRN Administration Keep Vein Open Departure - Departure Time of Disposition: 18:20 Disposition: Refer to Observation Condition: Good Clinical Impression: Chest pain Qualifiers: Chest pain type: unspecified Qualified Code(s): R07.9 - Chest pain, unspecified - My Orders Last 24 Hours: My Active Orders 01/13/19 15:34 Cardiac Monitoring [RC] . DIRECTED EKG Documentation Completion [RC] STAT Oxygen Therapy, ED [RC] ASDIRECTED Saline Lock Insert [OM.PC] Stat 01/13/19 17:48 Patient Status [ADT] Stat - Assessment/Plan Last 24 Hours: My Active Orders 01/13/19 15:34 Cardiac Monitoring [RC] . DIRECTED EKG Documentation Completion [RC] STAT Oxygen Therapy, ED [RC] ASDIRECTED Saline Lock Insert [OM.PC] Stat 01/13/19 17:48 Patient Status [ADT] Stat
[2019-01-13] MEDS: Nitroglycerin 0.4 MG Tab.SL SL PRN ×3 (15:55→16:09)
[2019-01-13] MEDS ORDERED: Ondansetron 4 MG/2 ML SDV IVPUSH ONE (16:11)
[2019-01-13] MEDS ORDERED: Morphine 2 MG/ML Syringe IVPUSH ONE ×3 (16:11→17:54)
--- NOTE | 2019-01-13 16:26 | CR ---
INDICATION: Pain for 3 days, worsening today. TECHNIQUE: Upright portable AP image of the chest. COMPARISON: None. FINDINGS: Lordotic projection and shallow inspiration. No obvious infiltrate. No pleural effusion. Heart size at the upper limit of normal. Pulmonary veins normal in caliber. Postop changes of coronary bypass. IMPRESSION: 1. Lungs low in volume, grossly clear. 2. Post coronary bypass. Dictated by Dmitriy Christy MD @ Jan 13 2019 4:22PM Signed by Dr. Dmitriy Christy @ Jan 13 2019 4:24PM
[2019-01-13 16:29] LABS: BLOOD UREA NITROGEN,BUN 37 mg/dL (7.0-18.0); CARBON DIOXIDE,CO2 23.2 mmol/L (21.0-32.0); CHLORIDE,CL 104 mmol/L (98-107); GLUCOSE RANDOM 146 mg/dL (74-106); POTASSIUM,K 4.5 mmol/L (3.5-5.1); SODIUM,NA 138 mmol/L (136-148)
--- NOTE | 2019-01-13 17:40 | CT ---
INDICATION: Chest pain radiating to the back for 2 weeks. Status post CABG and Ross procedure TECHNIQUE: CT chest without contrast. COMPARISON: Chest radiograph from same date FINDINGS: Cardiovascular structures: Status post median sternotomy. Cardiomegaly. Postsurgical changes in the ascending aorta. The ascending aorta measures 4 cm in diameter. Coronary artery calcifications. Heart size is normal. Thoracic aorta and main pulmonary artery are normal in caliber. Mediastinum and rayne: No sign of mass or adenopathy. Lungs: Clear. Pleura and pericardium: No effusions. Chest wall and axilla: No mass or adenopathy. Upper abdomen: Unremarkable. Bones: No significant findings. IMPRESSION: No acute intrathoracic abnormality. Dilatation of the ascending aorta measuring 4 cm in diameter. Cardiomegaly and coronary artery disease. Please note that all CT scans at this facility use dose modulation, iterative reconstruction, and/or weight-based dosing when appropriate to reduce radiation dose to as low as reasonably achievable. Dictated by Marely Mederos MD @ Jan 13 2019 5:28PM Signed by Dr. Marely Mederos @ Jan 13 2019 5:39PM
--- NOTE | 2019-01-13 17:59 | PCM.HP.2 ---
<Olive Virk - Last Filed: 01/13/19 18:20> H&P History of Present Illness - General Date of Service: 01/13/19 Admit Problem/Dx: Admission Diagnosis/Problem Admission Diagnosis/Problem Chest pain - History of Present Illness Initial Comments - Free Text/Narative: The patient is a 48-year-old male who presented to the ER with chest pain. The patient has a significant cardiac history which includes A. fib. 3. CABG procedures, Ross procedure, and DMII. 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 The pain was not relieved with 3 doses of nitro at home. He reports shortness of breath (not more than his usual state), and diaphoresis. Reports he is constantly short of breath and requires oxygen at night. 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 Patient denies any abdominal pain, nausea, vomiting, constipation, diarrhea, fever, chills. He reports eating, drinking normally. patient also has chronic back pain but reports that it is lumbar pain. In the ER workup showed no anemia, no white count, electrolytes within normal limits, elevated BUN/creatinine, negative troponin and a slightly elevated BNP of 121. The patient has no known history of CHF. Chest x-ray showed no acute cardiopulmonary process. Chest CT showed no acute intrathoracic abnormality but did show cardiomegaly with CAD and dilation of the ascending aorta, 4 cm. In ER, the patient was given aspirin, morphine and Zofran. Chest Pain Pain Score (Numeric/FACES): 7 - Related Data Allergies/Adverse Reactions: Allergies Allergy/AdvReac Type Severity Reaction Status Date / Time No Known Allergies Allergy Verified 04/20/17 16:16 Home Medications: Home Meds metFORMIN HCl [Metformin HCl] 1,000 mg PO BID 01/01/17 [History] Empagliflozin [Jardiance] 10 mg PO 01/13/19 [History] Lisinopril [Zestril] 40 mg PO DAILY 01/13/19 [History] Metoprolol Tartrate 50 mg PO DAILY 01/13/19 [History] buPROPion [Wellbutrin] 100 mg PO DAILY 01/13/19 [History] Past Medical History - Past Health History Medical/Surgical History: Denies Medical/Surgical History HEENT History: Reports: None Cardiovascular History: Reports: Afib, CAD, Hypertension. Denies: Heart Failure Respiratory History: Reports: Asthma Gastrointestinal History: Reports: Other (See Below) Other Gastrointestinal History: Chrons Disease Genitourinary History: Reports: None Musculoskeletal History: Reports: Back Pain, Chronic Neurological History: Reports: None Psychiatric History: Reports: None Endocrine/Metabolic History: Reports: Diabetes, Type II Immunologic History: Reports: None Oncologic (Cancer) History: Reports: None Dermatologic History: Reports: None - Infectious Disease History Infectious Disease History: Reports: Chicken Pox - Past Surgical History Head Surgeries/Procedures: Reports: None HEENT Surgical History: Reports: None Other Cardiovascular Surgeries/Procedures: CABG x3, Ross procedure Respiratory Surgical History: Reports: None Male Surgical History: Reports: None Neurological Surgical History: Reports: None Musculoskeletal Surgical History: Reports: None Oncologic Surgical History: Reports: None Social & Family History - Family History Family Medical History: Noncontributory - Tobacco Use Smoking Status *Q: Current Every Day Smoker Years of Tobacco use: 25 Packs/Tins Daily: 0.5 - Caffeine Use Caffeine Use: Reports: Coffee - Recreational Drug Use Recreational Drug Use: No H&P Review of Systems - Review of Systems: Review Of Systems: See Below General: Reports: Diaphoresis. Denies: Fever, Chills HEENT: Reports: No Symptoms Pulmonary: Reports: Shortness of Breath Cardiovascular: Reports: Chest Pain, Edema Gastrointestinal: Reports: No Symptoms Genitourinary: Reports: No Symptoms Musculoskeletal: Reports: Back Pain Skin: Reports: No Symptoms Psychiatric: Reports: No Symptoms Neurological: Reports: No Symptoms Hematologic/Lymphatic: Reports: No Symptoms Immunologic: Reports: No Symptoms Exam - Exam Exam: See Below - Vital Signs Vital Signs: Last Vital Signs Temp 96.7 F 01/13/19 15:40 Pulse 47 L 01/13/19 17:17 Resp 20 01/13/19 17:17 BP 110/56 L 01/13/19 17:17 Pulse Ox 100 01/13/19 17:17 Weight: 138.346 kg - Exam Quality Assessment: Supplemental Oxygen General: Alert, Oriented, Cooperative HEENT: Conjunctiva Clear, EOMI, Mucosa Moist & Marina, Posterior Pharynx Clear, Pupils Equal, Pupils Reactive Neck: Supple, Trachea Midline Lungs: Clear to Auscultation, Normal Respiratory Effort Cardiovascular: Irregular Rhythm, Bradycardia GI/Abdominal Exam: Normal Bowel Sounds, Soft, Non-Tender, No Distention Extremities: Pedal Edema Skin: Warm, Intact, Moist Neuro Extensive - Mental Status: Alert, Oriented x3 Psychiatric: Alert, Normal Affect, Normal Mood - Patient Data Lab Results Last 24 hrs: Laboratory Results - last 24 hr 01/13/19 01/13/19 01/13/19 Range/Units 15:45 15:45 15:45 WBC 8.33 (4.0-11.0) K/uL RBC 5.08 (4.50-5.90) M/uL Hgb 15.3 (13.0-17.0) g/dL Hct 45.7 (38.0-50.0) % MCV 90.0 (80.0-98.0) fL MCH 30.1 (27.0-32.0) pg MCHC 33.5 (31.0-37.0) g/dL RDW Std Deviation 48.9 (28.0-62.0) fl RDW Coeff of Raine 15 (11.0-15.0) % Plt Count 191 (150-400) K/uL MPV 11.00 (7.40-12.00) fL Neut % (Auto) 60.0 (48.0-80.0) % Lymph % (Auto) 30.0 (16.0-40.0) % [place] % (Auto) 8.2 (0.0-15.0) % Eos % (Auto) 1.6 (0.0-7.0) % Baso % (Auto) 0.2 (0.0-1.5) % Neut # (Auto) 5.0 (1.4-5.7) K/uL Lymph # (Auto) 2.5 H (0.6-2.4) K/uL [place] # (Auto) 0.7 (0.0-0.8) K/uL Eos # (Auto) 0.1 (0.0-0.7) K/uL Baso # (Auto) 0.0 (0.0-0.1) K/uL Nucleated RBC % 0.0 /100WBC Nucleated RBCs # 0 K/uL Sodium 138 (136-148) mmol/L Potassium 4.5 (3.5-5.1) mmol/L Chloride 104 (98-107) mmol/L Carbon Dioxide 23.2 (21.0-32.0) mmol/L BUN 37 H (7.0-18.0) mg/dL Creatinine 1.5 H (0.8-1.3) mg/dL Est Cr Clr Drug Dosing 70.02 mL/min Estimated GFR (MDRD) 49.9 ml/min Glucose 146 H (74-106) mg/dL Calcium 9.5 (8.5-10.1) mg/dL Total Bilirubin 0.3 (0.2-1.0) mg/dL AST 29 (15-37) IU/L ALT 26 (14-63) IU/L Alkaline Phosphatase 99 (46-116) U/L Troponin I < 0.050 (0.000-0.056) ng/mL B-Natriuretic Peptide 121 H (<100) PG/ML Total Protein 7.0 (6.4-8.2) g/dL Albumin 3.5 (3.4-5.0) g/dL Globulin 3.5 (2.6-4.0) g/dL Albumin/Globulin Ratio 1.0 (0.9-1.6) Result Diagrams: 01/13/19 15:45 01/13/19 15:45 - Problem List (1) ALIZE (acute kidney injury) SNOMED Code(s): 66153482, 69843753 ICD Code: N17.9 - ACUTE KIDNEY FAILURE, UNSPECIFIED Status: Acute Current Visit: Yes (2) S/P CABG x 3 SNOMED Code(s): 799020349, 448528640, 926519294 ICD Code: Z95.1 - PRESENCE OF AORTOCORONARY BYPASS GRAFT Status: Chronic Current Visit: Yes (3) Acute chest pain SNOMED Code(s): 133211251 ICD Code: R07.9 - CHEST PAIN, UNSPECIFIED Status: Acute Current Visit: No (4) History of coronary artery disease SNOMED Code(s): 574828862 ICD Code: Z86.79 - PERSONAL HISTORY OF OTHER DISEASES OF THE CIRCULATORY SYSTEM Status: Chronic Current Visit: No Problem List Initiated/Reviewed/Updated: Yes Orders Last 24hrs: Active Orders 24 hr Category Date Time Status Patient Status [ADT] Stat ADT 01/13/19 17:48 Active Cardiac Monitoring [RC] . DIRECTED Care 01/13/19 15:34 Active EKG Documentation Completion [RC] STAT Care 01/13/19 15:34 Active Oxygen Therapy, ED [RC] ASDIRECTED Care 01/13/19 15:34 Active Sodium Chloride 0.9% [Saline Flush] Med 01/13/19 15:35 Active 10 ml FLUSH ASDIRECTED PRN Sodium Chloride 0.9% [Saline Flush] Med 01/13/19 15:35 Active 2.5 ml FLUSH ASDIRECTED PRN Saline Lock Insert [OM.PC] Stat Oth 01/13/19 15:34 Ordered Medication Orders Sodium Chloride (Saline Flush) 10 ml FLUSH ASDIRECTED PRN PRN Reason: Keep Vein Open Last Admin: 01/13/19 15:58 Dose: 10 ml Sodium Chloride (Saline Flush) 2.5 ml FLUSH ASDIRECTED PRN PRN Reason: Keep Vein Open Last Admin: 01/13/19 15:58 Dose: 2.5 ml Assessment/Plan Comment:: 1. Admit for observation 2. Code status- Full 3. Vitals per routine 4. I/Os per routine 5. Diet- heart/diabetic 6. DVT prophylaxis with lovenox 7. Chest pain in patient with significant cardiac hx- monitor on telemetry, trend troponins, prn nitro/morphine, oxygen prn. Continue home cardiac meds. 8. DMII- accuchecks and sliding scale insulin, hold metformin 9. Elevated BUN/Cr- IVF and recheck in AM. <Jonny Martin - Last Filed: 01/13/19 18:22> H&P History of Present Illness - General Admit Problem/Dx: Admission Diagnosis/Problem Admission Diagnosis/Problem Chest pain I have seen and examined the patient independently of medical sales associate, Dr. Moose DO. I have reviewed and agree with the plan of care as outlined for this patient by her. I have discussed the case with her. Please see orders. Exam - Vital Signs Vital Signs: Last Vital Signs Temp 35.9 C 01/13/19 15:40 Pulse 45 L 01/13/19 18:01 Resp 20 01/13/19 18:01 BP 117/66 01/13/19 18:01 Pulse Ox 96 01/13/19 18:01 - Patient Data Lab Results Last 24 hrs: Laboratory Results - last 24 hr 01/13/19 01/13/19 01/13/19 Range/Units 15:45 15:45 15:45 WBC 8.33 (4.0-11.0) K/uL RBC 5.08 (4.50-5.90) M/uL Hgb 15.3 (13.0-17.0) g/dL Hct 45.7 (38.0-50.0) % MCV 90.0 (80.0-98.0) fL MCH 30.1 (27.0-32.0) pg MCHC 33.5 (31.0-37.0) g/dL RDW Std Deviation 48.9 (28.0-62.0) fl RDW Coeff of Raine 15 (11.0-15.0) % Plt Count 191 (150-400) K/uL MPV 11.00 (7.40-12.00) fL Neut % (Auto) 60.0 (48.0-80.0) % Lymph % (Auto) 30.0 (16.0-40.0) % [place] % (Auto) 8.2 (0.0-15.0) % Eos % (Auto) 1.6 (0.0-7.0) % Baso % (Auto) 0.2 (0.0-1.5) % Neut # (Auto) 5.0 (1.4-5.7) K/uL Lymph # (Auto) 2.5 H (0.6-2.4) K/uL [place] # (Auto) 0.7 (0.0-0.8) K/uL Eos # (Auto) 0.1 (0.0-0.7) K/uL Baso # (Auto) 0.0 (0.0-0.1) K/uL Nucleated RBC % 0.0 /100WBC Nucleated RBCs # 0 K/uL Sodium 138 (136-148) mmol/L Potassium 4.5 (3.5-5.1) mmol/L Chloride 104 (98-107) mmol/L Carbon Dioxide 23.2 (21.0-32.0) mmol/L BUN 37 H (7.0-18.0) mg/dL Creatinine 1.5 H (0.8-1.3) mg/dL Est Cr Clr Drug Dosing 70.02 mL/min Estimated GFR (MDRD) 49.9 ml/min Glucose 146 H (74-106) mg/dL Calcium 9.5 (8.5-10.1) mg/dL Total Bilirubin 0.3 (0.2-1.0) mg/dL AST 29 (15-37) IU/L ALT 26 (14-63) IU/L Alkaline Phosphatase 99 (46-116) U/L Troponin I < 0.050 (0.000-0.056) ng/mL B-Natriuretic Peptide 121 H (<100) PG/ML Total Protein 7.0 (6.4-8.2) g/dL Albumin 3.5 (3.4-5.0) g/dL Globulin 3.5 (2.6-4.0) g/dL Albumin/Globulin Ratio 1.0 (0.9-1.6) Result Diagrams: 01/13/19 15:45 01/13/19 15:45 Orders Last 24hrs: Active Orders 24 hr Category Date Time Status Patient Status [ADT] Stat ADT 01/13/19 17:48 Active Blood Glucose Check, Bedside [RC] TIDMEALS Care 01/13/19 18:18 Active Cardiac Monitoring [RC] . DIRECTED Care 01/13/19 15:34 Active Cardiac Monitoring [RC] . DIRECTED Care 01/13/19 18:18 Active EKG Documentation Completion [RC] STAT Care 01/13/19 15:34 Active Intake and Output [RC] ASDIRECTED Care 01/13/19 18:18 Active Oxygen Therapy, ED [RC] ASDIRECTED Care 01/13/19 15:34 Active Telemetry Monitoring [Cardiac Monitoring] [RC] . Care 01/13/19 18:09 Active DIRECTED Vital Signs [RC] PER UNIT ROUTINE Care 01/13/19 18:18 Active [employer] Diet [DIET] Diet 01/14/19 Breakfast Active BASIC METABOLIC PANEL,BMP [CHEM] AM Lab 01/14/19 05:11 Ordered CBC WITH AUTO DIFF [HEME] AM Lab 01/14/19 05:11 Ordered TROPONIN I [CHEM] Routine Lab 01/13/19 18:18 Ordered Enoxaparin [Lovenox] Med 01/13/19 18:30 Active 40 mg SUBCUT Q24H Insulin Aspart [NovoLOG] Med 01/14/19 07:30 Active See Protocol SUBCUT TIDAC Morphine Med 01/13/19 18:18 Active 2 mg IVPUSH Q2H PRN Nitroglycerin [Nitrostat] Med 01/13/19 18:18 Active 0.4 mg SL Q5M PRN Sodium Chloride 0.9% [Normal Saline] 1,000 ml Med 01/13/19 18:30 Active IV ASDIRECTED Sodium Chloride 0.9% [Saline Flush] Med 01/13/19 15:35 Active 10 ml FLUSH ASDIRECTED PRN Sodium Chloride 0.9% [Saline Flush] Med 01/13/19 15:35 Active 2.5 ml FLUSH ASDIRECTED PRN Saline Lock Insert [OM.PC] Stat Oth 01/13/19 15:34 Ordered Resuscitation Status Routine Resus Stat 01/13/19 18:18 Ordered Medication Orders Enoxaparin Sodium (Lovenox) 40 mg SUBCUT Q24H ROVERTO Sodium Chloride (Normal Saline) 1,000 mls @ 125 mls/hr IV ASDIRECTED ROVERTO Insulin Aspart (Novolog) 0 unit SUBCUT TIDAC ROVERTO; Protocol Morphine Sulfate (Morphine) 2 mg IVPUSH Q2H PRN PRN Reason: Chest Pain Nitroglycerin (Nitrostat) 0.4 mg SL Q5M PRN PRN Reason: Chest Pain Sodium Chloride (Saline Flush) 10 ml FLUSH ASDIRECTED PRN PRN Reason: Keep Vein Open Last Admin: 01/13/19 15:58 Dose: 10 ml Sodium Chloride (Saline Flush) 2.5 ml FLUSH ASDIRECTED PRN PRN Reason: Keep Vein Open Last Admin: 01/13/19 15:58 Dose: 2.5 ml
[2019-01-13] MEDS ORDERED: Nitroglycerin 0.4 MG Tab.SL SL PRN (18:18)
[2019-01-13] MEDS ORDERED: Ondansetron 4 MG/2 ML SDV IVPUSH PRN (18:23)
[2019-01-13] MEDS ORDERED: Acetaminophen 325 MG Tab PO PRN (18:23)
[2019-01-13] MEDS ORDERED: Enoxaparin 40 MG/0.4 ML Syringe SUBCUT SCH (18:30)
[2019-01-13] MEDS: Morphine 2 MG/ML Syringe IVPUSH PRN ×2 (20:07→23:30)
[2019-01-13] MEDS: Sodium Chloride 0.9% 1,000 ML IV SCH (20:08)
[2019-01-13] MEDS ORDERED: buPROPion 150 MG Tab.ER PO SCH (21:00)
[2019-01-14] MEDS: Morphine 2 MG/ML Syringe IVPUSH PRN ×2 (02:42→07:46)
[2019-01-14] MEDS: Sodium Chloride 0.9% 1,000 ML IV SCH (03:51)
[2019-01-14 04:37] LABS: BLOOD UREA NITROGEN,BUN 31 mg/dL (7.0-18.0); CARBON DIOXIDE,CO2 22.9 mmol/L (21.0-32.0); CHLORIDE,CL 107 mmol/L (98-107); GLUCOSE RANDOM 132 mg/dL (74-106); POTASSIUM,K 4.4 mmol/L (3.5-5.1); SODIUM,NA 142 mmol/L (136-148)
[2019-01-14] MEDS ORDERED: Insulin Aspart 100 Units/ML 3 ML Pen SUBCUT SCH (07:30)
[2019-01-14] MEDS ORDERED: Nicotine 14 MG/24 Hr Patch TRDERM SCH (09:00)
[2019-01-14] MEDS ORDERED: Metoprolol Tartrate 50 MG Tab PO SCH (09:00)
[2019-01-14] MEDS ORDERED: Lisinopril 10 MG Tab PO SCH (09:00)
[2019-01-14 09:20] VITALS: BP 105/49; PULSE 52
--- NOTE | 2019-01-14 11:57 | PCM.DCSUM1 ---
<Jt Giordano - Last Filed: 01/14/19 11:44> Discharge Summary - Hospital Course Free Text/Narrative:: Discharge Summary Admission date: January 13, 2019 Discharge date: January 14, 2019 Admission diagnoses: Chest pain and patient was significant cardiac history Type 2 diabetes Elevated BUN/creatinine Discharge diagnoses: Chest pain in patient with significant cardiac history: ACS ruled out Type 2 diabetes BUN/creatinine elevation: Improving Procedures: None Consultations: None Hospital course: Patient is a 48-year-old male with a past medical history of A. fib, coronary artery bypass graft, s/p Ross procedure,, type 2 diabetes; presenting with chest pain which he endorses being non-exertional w/ baseline shortness of breath. Patient tried 3 doses of nitroglycerin at home with nonresolution of symptoms. Patient was also diaphoretic. ER course: Elevated BUN/creatinine, elevated BNP no known history of CHF, chest CT showed no acute intrathoracic abnormality except for coronary artery disease with dilation initiated on aspirin morphine and Zofran. Subsequent 3 troponins were negative; EKG showed no ST elevations. Patient was monitored overnight on telemetry with no acute cardiac issues. Morning of discharge: Patient states having some mild chest discomfort which had resolved with pain medication; denied any shortness of breath or diaphoresis. EKG negative. Vitals stable. Endorses not following up with cardiology for 1-year. Did see Dr. Ramon 5-6 months ago; however has not made any effort to see cardiology or his primary care and would like a new [facility] [place] [facility]. Patient ultimately set up with cardiology in [place], [place]. Discharge condition: Stable Disposition home Discharge medications: Resume home medications Discharge instructions: Patient advised to notify provider if symptoms of fever , chills, body aches, dizziness, headache develop Advised to proceed to emergent department if symptoms of chest pain not relieved with nitroglycerin, increasing shortness of breath against baseline, or any other new symptoms develop. Advised to discontinue use of tobacco products; provided with NicoDerm nicotine patch. Patient understood recommendations and plan. - Discharge Data Discharge Date: 01/14/19 Discharge Disposition: Home, Self-Care 01 Condition: Fair - Referral to Home Health Primary Care Physician: PCP Unknown - Patient Instructions Diet: Heart Healthy Diet, No Alcoholic Beverages Driving: Do Not Drive Showering/Bathing: May Shower Notify Provider of: Fever, Increased Pain, Nausea and/or Vomiting Other/Special Instructions: Advised to notify provider if symptoms of fever, chills, body aches, chest pain not relieved by nitroglycerin, shortness of breath, headache, dizziness or any other new symptoms again develop. Continue using your Bipap machine at home. Continue home medications. Follow-up with Dr. Fuentes of Cardiology within 7-10 days. Follow-up with your primary care physician in 7-10 days - Discharge Plan *PRESCRIPTION DRUG MONITORING PROGRAM REVIEWED*: No *COPY OF PRESCRIPTION DRUG MONITORING REPORT IN PATIENT RITA: No Prescriptions/Med Rec: Nicotine [Habitrol] 14 mg TRDERM DAILY 10 Days #10 patch Home Medications: Home Meds metFORMIN HCl [Metformin HCl] 1,000 mg PO BID 01/01/17 [History] Empagliflozin [Jardiance] 10 mg PO ASDIRECTED MDD 10mg 01/13/19 [History] Lisinopril [Zestril] 40 mg PO DAILY MDD 40 mg 01/13/19 [History] Metoprolol Tartrate 50 mg PO DAILY MDD 100mg 01/13/19 [History] buPROPion [Wellbutrin] 300 mg PO BEDTIME MDD 300 01/13/19 [History] Acetaminophen [Tylenol] 650 mg PO Q4H PRN tablet 01/14/19 [Rx] Nicotine [Habitrol] 14 mg TRDERM DAILY 10 Days #10 patch 01/14/19 [Rx] Nitroglycerin [Nitrostat] 0.4 mg SL Q5M PRN tab.sl 01/14/19 [Rx] Patient Handouts: Acute Kidney Injury, Adult, Coronary Artery Bypass Grafting, Care After, [id number], Coronary Artery Bypass Grafting, [id number], Nicotine skin patches Referrals: Brooke Pinedo MD [Ordering Only Provider] - PCP,Unknown [Primary Care Provider] - - Discharge Summary/Plan Comment DC Time >30 min.: No - Patient Data Vitals - Most Recent: Last Vital Signs Temp 96.8 F 01/14/19 07:32 Pulse 52 L 01/14/19 09:20 Resp 17 01/14/19 07:32 BP 105/49 L 01/14/19 09:20 Pulse Ox 96 01/14/19 07:32 Weight - Most Recent: 138.346 kg I&O - Last 24 hours: Intake & Output 01/13/19 01/14/19 01/14/19 22:59 06:59 14:59 Intake Total 1245 931 Output Total 750 Balance 495 931 Lab Results - Last 24 hrs: Laboratory Results - last 24 hr 01/13/19 01/13/19 01/13/19 Range/Units 15:45 15:45 15:45 WBC 8.33 (4.0-11.0) K/uL RBC 5.08 (4.50-5.90) M/uL Hgb 15.3 (13.0-17.0) g/dL Hct 45.7 (38.0-50.0) % MCV 90.0 (80.0-98.0) fL MCH 30.1 (27.0-32.0) pg MCHC 33.5 (31.0-37.0) g/dL RDW Std Deviation 48.9 (28.0-62.0) fl RDW Coeff of Raine 15 (11.0-15.0) % Plt Count 191 (150-400) K/uL MPV 11.00 (7.40-12.00) fL Neut % (Auto) 60.0 (48.0-80.0) % Lymph % (Auto) 30.0 (16.0-40.0) % Sampson % (Auto) 8.2 (0.0-15.0) % Eos % (Auto) 1.6 (0.0-7.0) % Baso % (Auto) 0.2 (0.0-1.5) % Neut # (Auto) 5.0 (1.4-5.7) K/uL Lymph # (Auto) 2.5 H (0.6-2.4) K/uL Sampson # (Auto) 0.7 (0.0-0.8) K/uL Eos # (Auto) 0.1 (0.0-0.7) K/uL Baso # (Auto) 0.0 (0.0-0.1) K/uL Nucleated RBC % 0.0 /100WBC Nucleated RBCs # 0 K/uL Sodium 138 (136-148) mmol/L Potassium 4.5 (3.5-5.1) mmol/L Chloride 104 (98-107) mmol/L Carbon Dioxide 23.2 (21.0-32.0) mmol/L BUN 37 H (7.0-18.0) mg/dL Creatinine 1.5 H (0.8-1.3) mg/dL Est Cr Clr Drug Dosing 70.02 mL/min Estimated GFR (MDRD) 49.9 ml/min Glucose 146 H (74-106) mg/dL POC Glucose (60-110) mg/dL Calcium 9.5 (8.5-10.1) mg/dL Magnesium (1.8-2.4) mg/dL Total Bilirubin 0.3 (0.2-1.0) mg/dL AST 29 (15-37) IU/L ALT 26 (14-63) IU/L Alkaline Phosphatase 99 (46-116) U/L Troponin I < 0.050 (0.000-0.056) ng/mL B-Natriuretic Peptide 121 H (<100) PG/ML Total Protein 7.0 (6.4-8.2) g/dL Albumin 3.5 (3.4-5.0) g/dL Globulin 3.5 (2.6-4.0) g/dL Albumin/Globulin Ratio 1.0 (0.9-1.6) 01/13/19 01/14/19 01/14/19 Range/Units 22:07 04:06 04:06 WBC 5.59 (4.0-11.0) K/uL RBC 4.71 (4.50-5.90) M/uL Hgb 14.3 (13.0-17.0) g/dL Hct 42.8 (38.0-50.0) % MCV 90.9 (80.0-98.0) fL MCH 30.4 (27.0-32.0) pg MCHC 33.4 (31.0-37.0) g/dL RDW Std Deviation 50.0 (28.0-62.0) fl RDW Coeff of Raine 15 (11.0-15.0) % Plt Count 167 (150-400) K/uL MPV 10.90 (7.40-12.00) fL Neut % (Auto) 53.4 (48.0-80.0) % Lymph % (Auto) 36.9 (16.0-40.0) % Sampson % (Auto) 7.9 (0.0-15.0) % Eos % (Auto) 1.6 (0.0-7.0) % Baso % (Auto) 0.2 (0.0-1.5) % Neut # (Auto) 3.0 (1.4-5.7) K/uL Lymph # (Auto) 2.1 (0.6-2.4) K/uL Sampson # (Auto) 0.4 (0.0-0.8) K/uL Eos # (Auto) 0.1 (0.0-0.7) K/uL Baso # (Auto) 0.0 (0.0-0.1) K/uL Nucleated RBC % 0.0 /100WBC Nucleated RBCs # 0 K/uL Sodium 142 (136-148) mmol/L Potassium 4.4 (3.5-5.1) mmol/L Chloride 107 (98-107) mmol/L Carbon Dioxide 22.9 (21.0-32.0) mmol/L BUN 31 H (7.0-18.0) mg/dL Creatinine 1.2 (0.8-1.3) mg/dL Est Cr Clr Drug Dosing 87.53 mL/min Estimated GFR (MDRD) > 60.0 ml/min Glucose 132 H (74-106) mg/dL POC Glucose (60-110) mg/dL Calcium 9.3 (8.5-10.1) mg/dL Magnesium (1.8-2.4) mg/dL Total Bilirubin (0.2-1.0) mg/dL AST (15-37) IU/L ALT (14-63) IU/L Alkaline Phosphatase (46-116) U/L Troponin I < 0.050 (0.000-0.056) ng/mL B-Natriuretic Peptide (<100) PG/ML Total Protein (6.4-8.2) g/dL Albumin (3.4-5.0) g/dL Globulin (2.6-4.0) g/dL Albumin/Globulin Ratio (0.9-1.6) 01/14/19 01/14/19 01/14/19 Range/Units 04:06 04:06 06:07 WBC (4.0-11.0) K/uL RBC (4.50-5.90) M/uL Hgb (13.0-17.0) g/dL Hct (38.0-50.0) % MCV (80.0-98.0) fL MCH (27.0-32.0) pg MCHC (31.0-37.0) g/dL RDW Std Deviation (28.0-62.0) fl RDW Coeff of Raine (11.0-15.0) % Plt Count (150-400) K/uL MPV (7.40-12.00) fL Neut % (Auto) (48.0-80.0) % Lymph % (Auto) (16.0-40.0) % Sampson % (Auto) (0.0-15.0) % Eos % (Auto) (0.0-7.0) % Baso % (Auto) (0.0-1.5) % Neut # (Auto) (1.4-5.7) K/uL Lymph # (Auto) (0.6-2.4) K/uL Sampson # (Auto) (0.0-0.8) K/uL Eos # (Auto) (0.0-0.7) K/uL Baso # (Auto) (0.0-0.1) K/uL Nucleated RBC % /100WBC Nucleated RBCs # K/uL Sodium (136-148) mmol/L Potassium (3.5-5.1) mmol/L Chloride (98-107) mmol/L Carbon Dioxide (21.0-32.0) mmol/L BUN (7.0-18.0) mg/dL Creatinine (0.8-1.3) mg/dL Est Cr Clr Drug Dosing mL/min Estimated GFR (MDRD) ml/min Glucose (74-106) mg/dL POC Glucose 120 H (60-110) mg/dL Calcium (8.5-10.1) mg/dL Magnesium 1.9 (1.8-2.4) mg/dL Total Bilirubin (0.2-1.0) mg/dL AST (15-37) IU/L ALT (14-63) IU/L Alkaline Phosphatase (46-116) U/L Troponin I < 0.050 (0.000-0.056) ng/mL B-Natriuretic Peptide (<100) PG/ML Total Protein (6.4-8.2) g/dL Albumin (3.4-5.0) g/dL Globulin (2.6-4.0) g/dL Albumin/Globulin Ratio (0.9-1.6) Med Orders - Current: Current Medications Discontinued Medications Acetaminophen (Tylenol) 650 mg PO Q4H PRN PRN Reason: Pain/Fever Aspirin (Aspirin) 324 mg PO ONETIME ONE Stop: 01/13/19 15:36 Last Admin: 01/13/19 15:55 Dose: 324 mg Bupropion HCl (Wellbutrin Xl) 300 mg PO BEDTIME [facility] Enoxaparin Sodium (Lovenox) 40 mg SUBCUT Q24H [facility] Last Admin: 01/13/19 18:48 Dose: 40 mg Sodium Chloride (Normal Saline) 1,000 mls @ 125 mls/hr IV ASDIRECTED [facility] Last Admin: 01/14/19 03:51 Dose: 125 mls/hr Insulin Aspart (Novolog) 0 unit SUBCUT TIDAC [facility]; Protocol Last Admin: 01/14/19 06:45 Dose: Not Given Lisinopril (Prinivil) 40 mg PO DAILY [facility] Last Admin: 01/14/19 09:19 Dose: Not Given Metoprolol Tartrate (Lopressor) 50 mg PO DAILY [facility] Last Admin: 01/14/19 09:20 Dose: Not Given Morphine Sulfate (Morphine) 2 mg IVPUSH ONETIME ONE Stop: 01/13/19 16:12 Last Admin: 01/13/19 16:15 Dose: 2 mg Morphine Sulfate (Morphine) 2 mg IVPUSH ONETIME ONE Stop: 01/13/19 16:32 Last Admin: 01/13/19 16:35 Dose: 2 mg Morphine Sulfate (Morphine) 1 mg IVPUSH ONETIME ONE Stop: 01/13/19 17:55 Last Admin: 01/13/19 17:58 Dose: 1 mg Morphine Sulfate (Morphine) 2 mg IVPUSH Q2H PRN PRN Reason: Chest Pain Last Admin: 01/14/19 07:46 Dose: 2 mg Nicotine (Habitrol) 14 mg TRDERM DAILY [facility] Last Admin: 01/14/19 09:53 Dose: Not Given Nitroglycerin (Nitrostat) 0.4 mg SL Q5M PRN PRN Reason: Chest Pain Last Admin: 01/13/19 16:09 Dose: 0.4 mg Nitroglycerin (Nitrostat) 0.4 mg SL Q5M PRN PRN Reason: Chest Pain Ondansetron HCl (Zofran) 4 mg IVPUSH ONETIME ONE Stop: 01/13/19 16:12 Last Admin: 01/13/19 16:15 Dose: 4 mg Ondansetron HCl (Zofran) 4 mg IVPUSH Q4H PRN PRN Reason: Nausea/Vomiting Sodium Chloride (Saline Flush) 10 ml FLUSH ASDIRECTED PRN PRN Reason: Keep Vein Open Last Admin: 01/13/19 15:58 Dose: 10 ml Sodium Chloride (Saline Flush) 2.5 ml FLUSH ASDIRECTED PRN PRN Reason: Keep Vein Open Last Admin: 01/13/19 15:58 Dose: 2.5 ml <Jonny Martin - Last Filed: 01/14/19 12:59> Discharge Summary - Hospital Course Free Text/Narrative:: I have seen and examined the patient independently of medical staff director, Dr. Giuliana MD. I have reviewed and agree with the plan of care as outlined for this patient by him. I have discussed the case with him. Please see orders. - Referral to Home Health Primary Care Physician: PCP Unknown - Patient Data Vitals - Most Recent: Last Vital Signs Temp 36.0 C 01/14/19 07:32 Pulse 52 L 01/14/19 09:20 Resp 17 01/14/19 07:32 BP 105/49 L 01/14/19 09:20 Pulse Ox 96 01/14/19 07:32 I&O - Last 24 hours: Intake & Output 01/13/19 01/14/19 01/14/19 22:59 06:59 14:59 Intake Total 1245 931 Output Total 750 Balance 495 931 Lab Results - Last 24 hrs: Laboratory Results - last 24 hr 01/13/19 01/13/19 01/13/19 Range/Units 15:45 15:45 15:45 WBC 8.33 (4.0-11.0) K/uL RBC 5.08 (4.50-5.90) M/uL Hgb 15.3 (13.0-17.0) g/dL Hct 45.7 (38.0-50.0) % MCV 90.0 (80.0-98.0) fL MCH 30.1 (27.0-32.0) pg MCHC 33.5 (31.0-37.0) g/dL RDW Std Deviation 48.9 (28.0-62.0) fl RDW Coeff of Raine 15 (11.0-15.0) % Plt Count 191 (150-400) K/uL MPV 11.00 (7.40-12.00) fL Neut % (Auto) 60.0 (48.0-80.0) % Lymph % (Auto) 30.0 (16.0-40.0) % Sampson % (Auto) 8.2 (0.0-15.0) % Eos % (Auto) 1.6 (0.0-7.0) % Baso % (Auto) 0.2 (0.0-1.5) % Neut # (Auto) 5.0 (1.4-5.7) K/uL Lymph # (Auto) 2.5 H (0.6-2.4) K/uL Sampson # (Auto) 0.7 (0.0-0.8) K/uL Eos # (Auto) 0.1 (0.0-0.7) K/uL Baso # (Auto) 0.0 (0.0-0.1) K/uL Nucleated RBC % 0.0 /100WBC Nucleated RBCs # 0 K/uL Sodium 138 (136-148) mmol/L Potassium 4.5 (3.5-5.1) mmol/L Chloride 104 (98-107) mmol/L Carbon Dioxide 23.2 (21.0-32.0) mmol/L BUN 37 H (7.0-18.0) mg/dL Creatinine 1.5 H (0.8-1.3) mg/dL Est Cr Clr Drug Dosing 70.02 mL/min Estimated GFR (MDRD) 49.9 ml/min Glucose 146 H (74-106) mg/dL POC Glucose (60-110) mg/dL Calcium 9.5 (8.5-10.1) mg/dL Magnesium (1.8-2.4) mg/dL Total Bilirubin 0.3 (0.2-1.0) mg/dL AST 29 (15-37) IU/L ALT 26 (14-63) IU/L Alkaline Phosphatase 99 (46-116) U/L Troponin I < 0.050 (0.000-0.056) ng/mL B-Natriuretic Peptide 121 H (<100) PG/ML Total Protein 7.0 (6.4-8.2) g/dL Albumin 3.5 (3.4-5.0) g/dL Globulin 3.5 (2.6-4.0) g/dL Albumin/Globulin Ratio 1.0 (0.9-1.6) 01/13/19 01/14/19 01/14/19 Range/Units 22:07 04:06 04:06 WBC 5.59 (4.0-11.0) K/uL RBC 4.71 (4.50-5.90) M/uL Hgb 14.3 (13.0-17.0) g/dL Hct 42.8 (38.0-50.0) % MCV 90.9 (80.0-98.0) fL MCH 30.4 (27.0-32.0) pg MCHC 33.4 (31.0-37.0) g/dL RDW Std Deviation 50.0 (28.0-62.0) fl RDW Coeff of Raine 15 (11.0-15.0) % Plt Count 167 (150-400) K/uL MPV 10.90 (7.40-12.00) fL Neut % (Auto) 53.4 (48.0-80.0) % Lymph % (Auto) 36.9 (16.0-40.0) % Sampson % (Auto) 7.9 (0.0-15.0) % Eos % (Auto) 1.6 (0.0-7.0) % Baso % (Auto) 0.2 (0.0-1.5) % Neut # (Auto) 3.0 (1.4-5.7) K/uL Lymph # (Auto) 2.1 (0.6-2.4) K/uL Sampson # (Auto) 0.4 (0.0-0.8) K/uL Eos # (Auto) 0.1 (0.0-0.7) K/uL Baso # (Auto) 0.0 (0.0-0.1) K/uL Nucleated RBC % 0.0 /100WBC Nucleated RBCs # 0 K/uL Sodium 142 (136-148) mmol/L Potassium 4.4 (3.5-5.1) mmol/L Chloride 107 (98-107) mmol/L Carbon Dioxide 22.9 (21.0-32.0) mmol/L BUN 31 H (7.0-18.0) mg/dL Creatinine 1.2 (0.8-1.3) mg/dL Est Cr Clr Drug Dosing 87.53 mL/min Estimated GFR (MDRD) > 60.0 ml/min Glucose 132 H (74-106) mg/dL POC Glucose (60-110) mg/dL Calcium 9.3 (8.5-10.1) mg/dL Magnesium (1.8-2.4) mg/dL Total Bilirubin (0.2-1.0) mg/dL AST (15-37) IU/L ALT (14-63) IU/L Alkaline Phosphatase (46-116) U/L Troponin I < 0.050 (0.000-0.056) ng/mL B-Natriuretic Peptide (<100) PG/ML Total Protein (6.4-8.2) g/dL Albumin (3.4-5.0) g/dL Globulin (2.6-4.0) g/dL Albumin/Globulin Ratio (0.9-1.6) 01/14/19 01/14/19 01/14/19 Range/Units 04:06 04:06 06:07 WBC (4.0-11.0) K/uL RBC (4.50-5.90) M/uL Hgb (13.0-17.0) g/dL Hct (38.0-50.0) % MCV (80.0-98.0) fL MCH (27.0-32.0) pg MCHC (31.0-37.0) g/dL RDW Std Deviation (28.0-62.0) fl RDW Coeff of Raine (11.0-15.0) % Plt Count (150-400) K/uL MPV (7.40-12.00) fL Neut % (Auto) (48.0-80.0) % Lymph % (Auto) (16.0-40.0) % Sampson % (Auto) (0.0-15.0) % Eos % (Auto) (0.0-7.0) % Baso % (Auto) (0.0-1.5) % Neut # (Auto) (1.4-5.7) K/uL Lymph # (Auto) (0.6-2.4) K/uL Sampson # (Auto) (0.0-0.8) K/uL Eos # (Auto) (0.0-0.7) K/uL Baso # (Auto) (0.0-0.1) K/uL Nucleated RBC % /100WBC Nucleated RBCs # K/uL Sodium (136-148) mmol/L Potassium (3.5-5.1) mmol/L Chloride (98-107) mmol/L Carbon Dioxide (21.0-32.0) mmol/L BUN (7.0-18.0) mg/dL Creatinine (0.8-1.3) mg/dL Est Cr Clr Drug Dosing mL/min Estimated GFR (MDRD) ml/min Glucose (74-106) mg/dL POC Glucose 120 H (60-110) mg/dL Calcium (8.5-10.1) mg/dL Magnesium 1.9 (1.8-2.4) mg/dL Total Bilirubin (0.2-1.0) mg/dL AST (15-37) IU/L ALT (14-63) IU/L Alkaline Phosphatase (46-116) U/L Troponin I < 0.050 (0.000-0.056) ng/mL B-Natriuretic Peptide (<100) PG/ML Total Protein (6.4-8.2) g/dL Albumin (3.4-5.0) g/dL Globulin (2.6-4.0) g/dL Albumin/Globulin Ratio (0.9-1.6) Med Orders - Current: Current Medications Discontinued Medications Acetaminophen (Tylenol) 650 mg PO Q4H PRN PRN Reason: Pain/Fever Aspirin (Aspirin) 324 mg PO ONETIME ONE Stop: 01/13/19 15:36 Last Admin: 01/13/19 15:55 Dose: 324 mg Bupropion HCl (Wellbutrin Xl) 300 mg PO BEDTIME [facility] Enoxaparin Sodium (Lovenox) 40 mg SUBCUT Q24H [facility] Last Admin: 01/13/19 18:48 Dose: 40 mg Sodium Chloride (Normal Saline) 1,000 mls @ 125 mls/hr IV ASDIRECTED [facility] Last Admin: 01/14/19 03:51 Dose: 125 mls/hr Insulin Aspart (Novolog) 0 unit SUBCUT TIDAC [facility]; Protocol Last Admin: 01/14/19 06:45 Dose: Not Given Lisinopril (Prinivil) 40 mg PO DAILY [facility] Last Admin: 01/14/19 09:19 Dose: Not Given Metoprolol Tartrate (Lopressor) 50 mg PO DAILY [facility] Last Admin: 01/14/19 09:20 Dose: Not Given Morphine Sulfate (Morphine) 2 mg IVPUSH ONETIME ONE Stop: 01/13/19 16:12 Last Admin: 01/13/19 16:15 Dose: 2 mg Morphine Sulfate (Morphine) 2 mg IVPUSH ONETIME ONE Stop: 01/13/19 16:32 Last Admin: 01/13/19 16:35 Dose: 2 mg Morphine Sulfate (Morphine) 1 mg IVPUSH ONETIME ONE Stop: 01/13/19 17:55 Last Admin: 01/13/19 17:58 Dose: 1 mg Morphine Sulfate (Morphine) 2 mg IVPUSH Q2H PRN PRN Reason: Chest Pain Last Admin: 01/14/19 07:46 Dose: 2 mg Nicotine (Habitrol) 14 mg TRDERM DAILY [facility] Last Admin: 01/14/19 09:53 Dose: Not Given Nitroglycerin (Nitrostat) 0.4 mg SL Q5M PRN PRN Reason: Chest Pain Last Admin: 01/13/19 16:09 Dose: 0.4 mg Nitroglycerin (Nitrostat) 0.4 mg SL Q5M PRN PRN Reason: Chest Pain Ondansetron HCl (Zofran) 4 mg IVPUSH ONETIME ONE Stop: 01/13/19 16:12 Last Admin: 01/13/19 16:15 Dose: 4 mg Ondansetron HCl (Zofran) 4 mg IVPUSH Q4H PRN PRN Reason: Nausea/Vomiting Sodium Chloride (Saline Flush) 10 ml FLUSH ASDIRECTED PRN PRN Reason: Keep Vein Open Last Admin: 01/13/19 15:58 Dose: 10 ml Sodium Chloride (Saline Flush) 2.5 ml FLUSH ASDIRECTED PRN PRN Reason: Keep Vein Open Last Admin: 01/13/19 15:58 Dose: 2.5 ml
== END 2019-01-14 10:14 | disposition home or self-care (01) ==
LOC: MW.ED 15:30 → MW.MS 17:54
PROVIDERS: ADMIT Internal Medicine; ATTEND Internal Medicine
DX: R07.9 Chest pain, unspecified (principal); R79.89 Other specified abnormal findings of blood chemistry; I25.10 Atherosclerotic heart disease of native coronary artery without angina pectoris; I10 Essential (primary) hypertension; J45.909 Unspecified asthma, uncomplicated; E11.9 Type 2 diabetes mellitus without complications; F17.210 Nicotine dependence, cigarettes, uncomplicated; Z86.79 Personal history of other diseases of the circulatory system; Z95.1 Presence of aortocoronary bypass graft; Z79.84 Long term (current) use of oral hypoglycemic drugs; Z79.899 Other long term (current) drug therapy
CPT/HCPCS: 36415; 71045; 71250; 80048; 80053; 82962; 83735; 83880; 84484; 85025; 93005; 96374; 96375; 96376; 99285; A9270; J1650; J2270; J2405; J7040; 96361; 96372; G0378

== ENCOUNTER 2023-04-08 11:28 | Emergency (ER) | payer BC, MEDICAID ==
[2023-04-08] MEDS ORDERED: Aspirin 81 MG Tab.Chew PO ONE (11:45)
[2023-04-08] MEDS ORDERED: LORazepam 2 MG/ML SDV IVPUSH ONE (11:45)
[2023-04-08 12:00] VITALS: BP 141/69; PULSE 65
== END 2023-04-08 11:57 | disposition left against medical advice (07) ==
LOC: MW.ED 11:28
DX: U07.1 COVID-19 (principal); R07.9 Chest pain, unspecified; I10 Essential (primary) hypertension; I25.10 Atherosclerotic heart disease of native coronary artery without angina pectoris; E11.9 Type 2 diabetes mellitus without complications; Z79.899 Other long term (current) drug therapy; Z79.84 Long term (current) use of oral hypoglycemic drugs
CPT/HCPCS: 93005; 93010; 99283; 99285